=== PATIENT | female | born 1955 | race Two or more races ===

== ENCOUNTER 2018-04-17 06:19 | Inpatient (IN) | payer OTHER ==
[2018-04-02 16:12] VITALS: BMI 28.1
[2018-04-17] MEDS ORDERED: MIDAZOLAM HCL 2 MG/2 ML SINGLE DOSE VIAL ONE (07:31)
[2018-04-17] MEDS ORDERED: BUPIVACAINE LIPOSOME/PF (EXPAREL) 266 MG/20 ML VIAL ONE (08:27)
[2018-04-17] MEDS ORDERED: SODIUM CHLORIDE 0.9% P/F 10 ML VIAL IJ ONE (08:27)
[2018-04-17] MEDS ORDERED: BUPIVACAINE HCL/PF (5 MG/ML) 30 ML VIAL IJ ONE (08:27)
[2018-04-17] MEDS ORDERED: ONDANSETRON 4 MG/2 ML VIAL ONE (08:59)
[2018-04-17] MEDS ORDERED: ceFAZolin SODIUM 1 GM VIAL ONE ×2 (08:59→13:42)
[2018-04-17] MEDS ORDERED: PROPOFOL 20 ML ONE ×8 (08:59→14:02)
[2018-04-17] MEDS ORDERED: TRANEXAMIC ACID 1000 MG/10 ML VIAL ONE ×2 (08:59→13:35)
[2018-04-17] MEDS ORDERED: VANCOMYCIN 1,000 MG VIAL (RESTRICTED TO ID ONLY) ONE (08:59)
[2018-04-17] MEDS ORDERED: DEXAMETHASONE SOD PHOSPHATE 4 MG/1 ML VIAL ONE (08:59)
[2018-04-17] MEDS ORDERED: ePHEDrine SULFATE 50 MG/1 ML AMPULE ONE (11:21)
[2018-04-17] MEDS ORDERED: KETOROLAC TROMETHAMINE 30 MG/1 ML VIAL ONE (14:45)
--- NOTE | 2018-04-17 14:55 | PN ---
Progress Note (short form) - Note Progress Note: 63F s/p revision left TKA POD #0. 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 -DVT PPx: - Chemical: ASA 81mg PO BID x 6 weeks - Mechanical: REJI's, SCD's. -Incentive spirometry. -PT/OT/Rehab, OOB. -TTWB LLE. -PROM 0-90 deg L knee. -f/u drain output. -f/u post-op trial of void. -f/u AM labs. -Will order [place] brace for patient. -Care per medical hospitalist team. -Discharge planning: f/u Sunday04/26/2018 at [facility] [place] office; call for appointment; . -Will follow. Redd Bauman MD (Orthopaedic Surgery).
--- NOTE | 2018-04-17 14:57 | OP ---
Operative Note - Note: Operative Date: 04/17/18 Pre-Operative Diagnosis: L TKA pain Operation: Revision L TKA tibial component & polyethylene liner Findings: No infection Implants: Marlee RHK. Tibia #2, Stem (medium length), Poly 14mm Post-Operative Diagnosis: Same as Pre-op Surgeon: Redd Bauman Retort Fireman: Chano Bauman Anesthesiologist/MORTAR MIXER: Bettye Xiao Anesthesia: Spinal Specimens Removed: Tibial component. Polyethylene liner Estimated Blood Loss (mls): 0 Drains & Tubes with Location: 1 x deep HemoVac Fluid Volume Replaced (mls): 1,000 Operative Report Dictated: Yes
[2018-04-17] MEDS ORDERED: MAGNESIUM HYDROX 2400MG/30ML ORAL SUSPENSION 30 ML CUP PO PRN (14:58)
[2018-04-17] MEDS ORDERED: ONDANSETRON 4 MG/2 ML VIAL IVPUSH PRN ×2 (14:58)
[2018-04-17] MEDS ORDERED: oxyCODONE HCL 5 MG TABLET PO PRN (14:58)
[2018-04-17] MEDS ORDERED: MAG HYDROX/AL HYDROX/SIMETH 30 ML UNIT-DOSE CUP PO PRN (14:58)
[2018-04-17] MEDS ORDERED: LACTATED RINGERS SOLUTION 1,000 ML IV SCH ×2 (15:00)
[2018-04-17] MEDS ORDERED: ONDANSETRON 4 MG/2 ML VIAL IVPUSH ONE (15:13)
[2018-04-17] MEDS ORDERED: ACETAMINOPHEN 1000 MG/100 ML VIAL (NON FORMULARY) IVPB ONE ×3 (15:15→15:30)
[2018-04-17] MEDS: oxyCODONE HCL 5 MG TABLET PO PRN ×2 (18:01→22:04)
[2018-04-17] MEDS: CEFAZOLIN 2 GM/D5W 2 GM/50 ML ML IVPB SCH (20:03)
[2018-04-17] MEDS: ACETAMINOPHEN 325 MG TABLET (FP) PO SCH (21:03)
[2018-04-17] MEDS: SENNOSIDES/DOCUSATE COMBO (SENNA PLUS) TABLET (UD) PO SCH (22:02)
[2018-04-17] MEDS: ASPIRIN COATED 81 MG TABLET.EC PO SCH (22:03)
[2018-04-17] MEDS: oxyCODONE HCL 10 MG SUSTAINED ACTING TABLET PO SCH (22:03)
[2018-04-17] MEDS: MIRTAZAPINE 15 MG TABLET (FP) PO SCH (22:03)
[2018-04-18] MEDS: ACETAMINOPHEN 325 MG TABLET (FP) PO SCH ×4 (04:00→20:04)
[2018-04-18] MEDS: CEFAZOLIN 2 GM/D5W 2 GM/50 ML ML IVPB SCH (04:41)
[2018-04-18 08:35] LABS: HEMATOCRIT 29.6 % (32.4-45.2); MCH 29.7 pg (25.7-33.7); MCHC 33.9 g/dl (32.0-36.0); MEAN CELL VOLUME 87.5 fl (80-96); MEAN PLT VOLUME 8.4 fl (7.5-11.1); PLATELET COUNT 222 K/MM3 (134-434); RBC 3.38 M/mm3 (3.60-5.2); RDW 12.4 % (11.6-15.6); WHITE BLOOD COUNT 8.7 K/mm3 (4.0-10.8)
--- NOTE | 2018-04-18 08:55 | OP ---
DATE OF OPERATION: 04/17/2018 SURGEON: Redd Bauman MD DECISION UNIT RN: Chano Bauman MD PREOPERATIVE DIAGNOSIS: Possible infection and loosening of left total knee arthroplasty. POSTOPERATIVE DIAGNOSIS: Loosening of tibial component. OPERATION PERFORMED: 1. Explantation of previous left knee. 2. Revision of left knee replacement to a Marlee rotating hinge arthroplasty. 3. Lateral release performed and a complete synovectomy performed in order to perform a full debridement of the knee. Biopsies were sent to the lab for culture and sensitivity. 4. Removal of hardware. DESCRIPTION OF PROCEDURE: Through the old original incision, the subcutaneous tissue was opened to the fascia. The quadriceps tendon was split longitudinally and coursed around the medial aspect of the patella alongside the medial to the actual top part of the medial tibial tubercle. The previous hardware screws of the tibial tubercle were removed, thus adding a removal of hardware to this operation. Once the screws had been removed, a full tibial tubercle osteotomy was performed. Approximately 10 cm distal to the proximal end of the tibial tubercle using wide osteotomes, the entire bone bed was lifted. This gave very adequate exposure. Without doing this osteotomy it would have been impossible, unless we tore off the patellar ligament off the tibial tubercle, to gain access to the knee. Full debridement of the soft tissues was performed. The tibia was inspected. The tibia was loose, and thus utilizing the tibial tubercle osteotomy to get around the cement as well as using Gigli saws and small oscillating saws working right around the top plate of the tibia, the entire tibial base plate was removed with the original stem. Reaming was to size 12. Complete clearance of the fibrous tissue in the endosteal canal was performed. Multiple small drill holes were made in the actual tibial bone bed for better cement ingress. The femoral component was inspected and found to be completely stable. Culture sticks were sent to the lab for microbiology and culture and sensitivity, but multiple specimens were taken throughout the knee and sent to the lab for histopathology which revealed the presence of 1 or 2 polymorphonuclear granulocytes in a few of the high-power heaton, not all. This fitted with the noninfected appearance of the soft tissues and bone bed itself. Once the confirmation of no infection was achieved, revision implantation of the tibia was performed. This was rotating hinge knee arthroplasty to revise the femoral locking pin as well of the rotating hinge accordingly, thus a complete total revision knee arthroplasty had been performed. We extended the extension gap. Using intramedullary jig alignment 2 mm of the proximal end of the tibia was removed and a size 2 tibial tray inserted with a 12 x 100-mm stem. This was cemented in its anatomical position. This brought about an excellent reduction with a size 17-mm polyethylene liner. There was no instability even checking the stability with the pin out of the rotating hinge component. Once we were happy with this full extension and excellent full flexion range of motion, the pin was inserted, and this provided no change in the motion of this knee. The tibial tubercle was then reattached using 3 lag effect small fragment cancellous screws, solid press-fit fixation and compression of the tibial tubercle achieved. The knee was placed through a full range of movement and found to have exact the same findings as outlined above. The wounds were thoroughly lavaged throughout the procedure. A 1/8-inch Hemovac drain was utilized. Closure was as follows: Fascia 1 Vicryl, subcutaneous 1 and 2-0 Vicryl, skin closed with fawn for drainage. A light dressing applied. No complications. Operation was performed under general anesthesia. Antibiotics utilized were 2 g Kefzol and 1 g vancomycin, and 1 g Kefzol given at the end of procedure. MD MURIEL Becerra/[id number]
[2018-04-18 09:00] LABS: ANION GAP 8 (8-16); BLOOD UREA NITROGEN 11 mg/dl (7-18); CALCIUM 8.6 mg/dl (8.4-10.2); CHLORIDE 101 mmol/L (98-107); CO2 28 mmol/L (22-28); CREATININE 0.8 mg/dl (0.6-1.3); GLUCOSE,RANDOM 97 mg/dl (74-106); POTASSIUM 4.3 mmol/L (3.5-5.1); SODIUM 137 mmol/L (136-145)
[2018-04-18] MEDS: PANTOPRAZOLE 40 MG TABLET (FP) PO SCH (09:40)
--- NOTE | 2018-04-18 09:46 | CONSULT ---
Consultation: REQUESTING PROVIDER: Dr Bauman CONSULT REQUEST: We have been asked to medically evaluate this patient for medical management HISTORY OF PRESENT ILLNESS: Patient is a 63 y/o female with a pmh of djd and hld,patient is post operative day 1, s/p left knee TKR, (revision) REVIEW OF SYSTEMS: CONSTITUTIONAL: Absent: fever, chills, diaphoresis, generalized weakness, malaise, loss of appetite, weight change HEENT: Absent: rhinorrhea, nasal congestion, throat pain, throat swelling, difficulty swallowing, mouth swelling, ear pain, eye pain, visual changes CARDIOVASCULAR: Absent: chest pain, syncope, palpitations, irregular heart rate, lightheadedness , peripheral edema RESPIRATORY: Absent: cough, shortness of breath, dyspnea with exertion, orthopnea, wheezing, stridor, hemoptysis GASTROINTESTINAL: Absent: abdominal pain, abdominal distension, nausea, vomiting, diarrhea, constipation, melena, hematochezia GENITOURINARY: Absent: dysuria, frequency, urgency, hesitancy, hematuria, flank pain, genital pain MUSCULOSKELETAL: present: left knee pain Absent: myalgia, arthralgia, joint swelling, back pain, neck pain SKIN: Absent: rash, itching, pallor HEMATOLOGIC/IMMUNOLOGIC: Absent: easy bleeding, easy bruising, lymphadenopathy, frequent infections ENDOCRINE: Absent: unexplained weight gain, unexplained weight loss, heat intolerance, cold intolerance NEUROLOGIC: Absent: headache, focal weakness or paresthesias, dizziness, unsteady gait, seizure, mental status changes, bladder or bowel incontinence PSYCHIATRIC: Absent: anxiety, depression, suicidal or homicidal ideation, hallucinations. PHYSICAL EXAMINATION Vital Signs - 24 hr 04/17/18 04/17/18 04/17/18 14:54 15:00 15:05 Temperature 97.6 F Pulse Rate 64 60 61 Respiratory 16 16 16 Rate Blood Pressure 93/65 112/63 113/68 O2 Sat by Pulse 97 99 99 Oximetry (%) 04/17/18 04/17/18 04/17/18 15:10 15:25 15:40 Temperature Pulse Rate 68 68 63 Respiratory 16 16 16 Rate Blood Pressure 111/64 111/63 106/59 O2 Sat by Pulse 99 99 99 Oximetry (%) 04/17/18 04/17/18 04/17/18 15:55 16:10 16:25 Temperature 97.6 F Pulse Rate 60 63 60 Respiratory 16 16 16 Rate Blood Pressure 100/55 108/60 106/54 O2 Sat by Pulse 99 99 Oximetry (%) 04/17/18 04/17/18 04/17/18 16:57 18:58 20:25 Temperature 98.1 F 98.0 F Pulse Rate 64 69 Respiratory 18 20 Rate Blood Pressure 95/52 109/61 O2 Sat by Pulse 95 96 Oximetry (%) 04/17/18 04/17/18 04/18/18 21:00 22:00 00:21 Temperature 98.0 F Pulse Rate 64 Respiratory 20 19 Rate Blood Pressure 100/46 O2 Sat by Pulse 96 93 L Oximetry (%) 04/18/18 06:00 Temperature 98.4 F Pulse Rate 65 Respiratory 19 Rate Blood Pressure 100/66 O2 Sat by Pulse 95 Oximetry (%) GENERAL: Awake, alert, and fully oriented, in no acute distress. HEAD: Normal with no signs of trauma. EYES: Pupils equal, round and reactive to light, extraocular movements intact, sclera anicteric, conjunctiva clear. No lid lag. EARS, NOSE, THROAT: Ears normal, nares patent, oropharynx clear without exudates. Moist mucous membranes. NECK: Normal range of motion, supple without lymphadenopathy, JVD, or masses. LUNGS: Breath sounds equal, clear to auscultation bilaterally. No wheezes, and no crackles. No accessory muscle use. HEART: Regular rate and rhythm, normal S1 and S2 without murmur, rub or gallop. ABDOMEN: Soft, nontender, not distended, normoactive bowel sounds, no guarding, no rebound, no masses. No hepatomegaly or splenomegaly. MUSCULOSKELETAL: Normal range of motion at all joints. No bony deformities or tenderness. No CVA tenderness. UPPER EXTREMITIES: 2+ pulses, warm, well-perfused. No cyanosis. No clubbing. Cap refill <2 seconds. No peripheral edema. LOWER EXTREMITIES: 2+ pulses, warm, well-perfused. No calf tenderness. No peripheral edema, left knee dressing cdi,hemovac drain scant drainage noted, scd /floyd. NEUROLOGICAL: Cranial nerves II-XII intact. Normal speech. Normal gait. PSYCHIATRIC: Cooperative. Good eye contact. Appropriate mood and affect. SKIN: Warm, dry, normal turgor, no rashes or lesions noted. Laboratory Results - last 24 hr 04/18/18 04/18/18 07:30 07:30 WBC 8.7 RBC 3.38 L Hgb 10.0 L Hct 29.6 L MCV 87.5 MCH 29.7 MCHC 33.9 RDW 12.4 Plt Count 222 MPV 8.4 Sodium 137 Potassium 4.3 Chloride 101 Carbon Dioxide 28 Anion Gap 8 BUN 11 Creatinine 0.8 Creat Clearance w eGFR > 60 Random Glucose 97 Calcium 8.6 Active Medications Generic Name Dose Route Start Last Admin Trade Name Freq PRN Reason Stop Dose Admin Acetaminophen 650 mg 04/17/18 21:00 04/18/18 08:16 Tylenol - PO 04/20/18 20:59 650 mg Q6H OWEN Administration Al Hydroxide/Mg Hydroxide 30 ml 04/17/18 14:58 Mylanta Oral Suspension - PO Q4H PRN DYSPEPSIA Aspirin 81 mg 04/17/18 22:00 04/17/18 22:03 Ecotrin - PO 81 mg BID OWEN Administration Lactated Ringer's 1,000 mls @ 75 mls/hr 04/17/18 15:00 04/17/18 16:51 Lactated Ringers Solution IV Not Given ASDIR OWEN Magnesium Hydroxide 30 ml 04/17/18 14:58 Milk Of Magnesia - PO PRN PRN CONSTIPATION Mirtazapine 45 mg 04/17/18 22:00 04/17/18 22:03 Remeron - PO 45 mg HS OWEN Administration Ondansetron HCl 4 mg 04/17/18 14:58 Zofran Injection IVPUSH Q6H PRN NAUSEA Oxycodone HCl 5 mg 04/17/18 14:58 Roxicodone - PO Q3H PRN PAIN LEVEL 1-5 Oxycodone HCl 10 mg 04/17/18 14:58 04/17/18 22:04 Roxicodone - PO 10 mg Q3H PRN Administration PAIN LEVEL 6-10 Oxycodone HCl 10 mg 04/17/18 22:00 04/17/18 22:03 Oxycontin - PO 04/20/18 14:59 10 mg BID OWEN Administration Pantoprazole Sodium 40 mg 04/18/18 10:00 Protonix - PO DAILY OWEN Senna/Docusate Sodium 2 tablet 04/17/18 22:00 04/17/18 22:02 Pericolace - PO 2 tablet BID OWEN Administration ASSESSMENT/PLAN: 1) ms s/p left knee (revision) TKR, pod #1 - toe touch weight bearing as per ortho - incentive spirometeer - monitor h/h, repeat hgb this am 10.0 Dispo: We will continue to follow the patient. Thank you for this consultative opportunity. Visit type - Emergency Visit Emergency Visit: No - New Patient This patient is new to me today: Yes Date on this admission: 04/18/18 - Critical Care Critical Care patient: No
[2018-04-18] MEDS: SENNOSIDES/DOCUSATE COMBO (SENNA PLUS) TABLET (UD) PO SCH ×2 (10:00→21:59)
[2018-04-18] MEDS: oxyCODONE HCL 10 MG SUSTAINED ACTING TABLET PO SCH ×2 (10:19→22:01)
[2018-04-18] MEDS: ASPIRIN COATED 81 MG TABLET.EC PO SCH ×2 (10:19→22:03)
--- NOTE | 2018-04-18 12:01 | PN ---
Progress Note (short form) - Note Progress Note: Surgery POD #1 left total knee revision. Patient seen and examined at bedside, states her pain has improved since last night but the oxycodone made her itchy. She has been OOB with walker, voiding and tolerating a regular diet. She denies any CP, SOB, N/V/D, Fever or chills. Vital Signs Temp 98.4 F 04/18/18 06:00 Pulse 65 04/18/18 06:00 Resp 19 04/18/18 06:00 BP 100/66 04/18/18 06:00 Pulse Ox 95 04/18/18 06:00 Intake & Output 04/17/18 04/17/18 04/18/18 11:59 23:59 11:59 Intake Total 4800 Output Total 1000 125 Balance 3800 -125 Weight 185 lb Intake: IV 1800 Other 3000 Output: Drainage 125 hemovac 125 Urine 1000 Other: # Unmeasured Voids Void 1 Height 5 ft 8 in Body Mass Index (BMI) 28.1 CBC, BMP 04/18/18 07:30 04/18/18 07:30 PE: A&Ox3, NAD, unlabored resp on RA Left knee dressing C/D/I with drain functioning-SS d/c, ROM from 0-40 degrees. 5 /5 strength on dorsi/plantar flexion. B/L LE compartment soft and non-tender with +2 pedal pulses Problem List - Problems (1) Failure of total knee arthroplasty Assessment/Plan: POD #1 left total knee revision doing well. 1) OOB with walker- WBAT (B[place]so Brace) 2) DVT prophylaxis with ASA 81 BID x 6 weeks and SCDs and TEDs 3) ROM 0-90 degrees 4) Plan for d/c home once drain removed possibly tomorrow. Code(s): T84.018A - BROKEN INTERNAL JOINT PROSTHESIS, OTHER SITE, INIT ENCNTR; Z96.659 - PRESENCE OF UNSPECIFIED ARTIFICIAL KNEE JOINT
--- NOTE | 2018-04-18 13:21 | PN ---
Progress Note (short form) - Note Progress Note: 63F POD1 s/p revision of left TKR under spinal anesthetic with peripheral nerve blocks for post operative pain relief. Pt states that pain is well controlled, reports no anesthetic complications. Pruritis secondary to oxycodone improved. AVSS. Motor and sensory function intact in bilateral lower extremities. Continue current regimen.
[2018-04-18] MEDS: diphenhydrAMINE HCL 25 MG CAPSULE (FP) PO PRN (20:04)
[2018-04-18] MEDS: oxyCODONE HCL 5 MG TABLET PO PRN (20:05)
[2018-04-18] MEDS: MIRTAZAPINE 15 MG TABLET (FP) PO SCH (22:01)
[2018-04-19] MEDS: ACETAMINOPHEN 325 MG TABLET (FP) PO SCH ×2 (02:32→09:00)
[2018-04-19] MEDS: oxyCODONE HCL 5 MG TABLET PO PRN ×2 (05:57→10:59)
[2018-04-19] MEDS: diphenhydrAMINE HCL 25 MG CAPSULE (FP) PO PRN ×2 (05:58→10:58)
[2018-04-19] MEDS: oxyCODONE HCL 10 MG SUSTAINED ACTING TABLET PO SCH (10:58)
[2018-04-19] MEDS: SENNOSIDES/DOCUSATE COMBO (SENNA PLUS) TABLET (UD) PO SCH (10:58)
[2018-04-19] MEDS: ASPIRIN COATED 81 MG TABLET.EC PO SCH (10:58)
[2018-04-19] MEDS: PANTOPRAZOLE 40 MG TABLET (FP) PO SCH (10:59)
--- NOTE | 2018-04-19 12:15 | DS ---
Physical Exam: SUBJECTIVE: POD #2 left Revision TKA patient seen and examined at bedside with no complaints. Pain is controlled and she denies any CP, SOB, N/V Fever or chills. She has been ambulating with a walker and is tolerating her diet. OBJECTIVE: Vital Signs Period Temp Pulse Resp BP Sys/Murray Pulse Ox Last 24 Hr 98.2 F-99.5 F 63-72 18-18 97-108/52-54 96-97 PHYSICAL EXAM GENERAL: The patient is awake, alert, and fully oriented, in no acute distress. HEAD: Normal with no signs of trauma. EYES: sclera anicteric, conjunctiva clear. LUNGS: unlabored resp on RA, no accessory muscle use. ABDOMEN: Soft, nontender, nondistended, normoactive bowel sounds, no guarding, no rebound, no hepatosplenomegaly, no masses. EXTREMITIES:Left Knee dressing c/d/i with surrounding tissue intact and no evidence of tracking d/c or collection. Thigh soft, supple with mild ttp throughout, Drain removed with tip fully intact and pressure dressing applied. ROM from 0-60 degrees. B/L LE compartments soft, supple and non-tender with 2+ pulses, warm, well-perfused, 5/5 dorsi/plantar flexion NEUROLOGICAL: Cranial nerves II through XII grossly intact. Normal speech, gait not observed. PSYCH: Normal mood, normal affect. SKIN: Warm, dry, normal turgor, no rashes or lesions noted. CBC, BMP 07/12/18 07:30 07/12/18 07:30 HOSPITAL COURSE: Date of Admission:18 The patient was admitted to the Med-Surg Unit after left TKA revision. Now, s/ p left TKA revision. An xray was obtained in the OR and confirmed hardware placement in good position with no fractures or dislocations. The day of surgery, the patient ambulated the hallways with assistance. Narcotic and non-narcotic pain management control was achieved with an oral and IV approach. POD #2, the surgical drain was removed fully intact and without incident. Judith-operative IV ABX were administered. DVT prophylaxis was achieved with SCDs and early ambulation. The patient ambulated with Physical Therapy and rehab was recommended. Narcotic scripts and were checked with PRS MODEL MAKER PLASTER prior to escibe. The discharge instructions and an oral pain management plan were reviewed with the patient. All questions answered. Date of Discharge: 04/19/18 Minutes to complete discharge: 25 [facility]charge Summary [facility] Current Active Problems Failure of total knee arthroplasty (Acute) Condition: Stable - Instructions Diet, Activity, Other Instructions: Dr. Bauman Discharge Instructions for Knee Replacement Post Operative Instructions Physical activity Physical Therapist will come to your home for the first 5 days. You will be set up with outpatient PT at your first post-operative visit. Use assistive devices for ambulation at all times. Toe touch weight bearing with walker on your surgical side. Do not put pillow under knee. May put pillow under heel. Wear knee brace when out of bed ambulating. Wound care Leave your surgical dressing in place. Do not change the dressing until seen by your surgeon in the office. No baths or showers. Do not submerge your incision. Do not apply any ointments or lotions to your incision. Please call the office if your dressing is soiled/dirty or is falling off. Apply Graduated Compression Stockings (TEDS) to both lower extremities - remove daily for hygiene ONLY. Diet There are no dietary restrictions. Eat healthy, high-fiber foods. Drink 6 to 8 glasses of liquid each day. This will assist in keeping your bowels are regular. Pain management Any pain prescription medication ordered should be taken as prescribed for moderate to severe pain. Do not take additional Tylenol while taking Percocet. Take Aspirin 81 mg two times a day for a total of 6 weeks to prevent blood clots. Call Dr. Bauman for any of the following: Severe pain not relieved by medication Fever of 101 or higher Excessive bleeding or drainage on dressing Inability to urinate If you experience chest pain or shortness of breath, please seek emergency care immediately. Please call the office at to confirm your post-op appointment for the week following surgery. Disposition: HOME - Home Medications Comprehensive Discharge Medication List: Ambulatory Orders Atorvastatin Calcium [Lipitor] 10 mg PO DAILY 04/02/18 Mirtazapine [Remeron -] 45 mg PO DAILY 04/02/18 Problem List - Problems (1) Failure of total knee arthroplasty Assessment/Plan: POD #2 left revision TKA doing well 1) Continue ASA x 6 weeks 2) TTBA with brace and walker 3) pain control 4) d/c home today Code(s): T84.018A - BROKEN INTERNAL JOINT PROSTHESIS, OTHER SITE, INIT ENCNTR; Z96.659 - PRESENCE OF UNSPECIFIED ARTIFICIAL KNEE JOINT This patient is new to me today: Yes Date on this admission: 04/19/18 Emergency Visit: No Critical Care patient: No - Discharge Referral Referred to [facility] Med P.C.: No
[2018-04-19 14:48] VITALS: BP 103/58; PULSE 67; TEMP 98
--- NOTE | 2018-04-19 15:46 | PATH ---
Surgical Pathology Report Patient Name: DARIO VÁZQUEZ Med. Rec. #: [id number] /Age/Gender: 1955 (Age: 63) / F Account: [id number] Location: [facility] MED-SURG Taken: 04/17/2018 Received: 04/17/2018 Reported: 04/19/2018 Physicians: Redd Bauman M.D. Specimen(s) Received A: LEFT KNEE SYNOVIUM FEMUR (FS) B: LEFT KNEE SYNOVIUM (FS) C: LEFT KNEE CAPSULE (FS) D: LEFT KNEE CAPSULE/SYNOVIUM (FS) E: LEFT KNEE EXPLANTS Clinical History Mechanical loosening left knee Intraoperative Consult Diagnosis A. Left knee synovium, frozen section: Rare neutrophils seen (up to 1-2 in 10 appeals representative high-power bernal). B. Left knee synovium, frozen section: Rare neutrophils seen (up to 1-2 in 10 appeals representative high-power bernal) in appeals representative sections. C. Left knee capsule, frozen section: No definitive neutrophils identified in appeals representative sections. D. Left knee capsule/synovium, frozen section: Rare neutrophils seen (up to 1-2 in 10 appeals representative high-power bernal) in appeals representative sections. Devang Camarillo M.D., 04/17/18 Final Diagnosis A. SYNOVIUM FEMUR, LEFT KNEE, REVISION (FS): FIBROSYNOVIAL TISSUE SHOWING REACTIVE HYPERPLASIA, FOREIGN BODY GIANT CELL REACTION AND 1-2 NEUTROPHILS IN TEN HIGH-POWER BERNAL (HPF). B. SYNOVIUM, LEFT KNEE, REVISION (FS): FIBROSYNOVIAL TISSUE SHOWING REACTIVE HYPERPLASIA AND 1-2 NEUTROPHILS IN TEN HIGH-POWER BERNAL (HPF). (SEE NOTE) Note: Overall up to 1-2 neutrophils are noted in multiple (up to ten) high-power bernal, however few foci on permanent sections of frozen section tissue and in additional tissue show 3-4 neutrophils in rare single high-power bernal. C. CAPSULE, LEFT KNEE, REVISION (FS): FIBROSYNOVIAL TISSUE SHOWING REACTIVE HYPERPLASIA AND 1-2 NEUTROPHILS IN TEN HIGH-POWER BERNAL (HPF). (SEE NOTE) FIBROCOLLAGENOUS AND FIBROCARTILAGINOUS TISSUE. Note: Rare neutrophils are identified in reactive fibrosynovial tissue on permanent sections of frozen section tissue and in additional tissue. No definitive neutrophils were identified on original frozen section slides. D. CAPSULE/SYNOVIUM, LEFT KNEE, REVISION (FS): FIBROSYNOVIAL TISSUE SHOWING REACTIVE HYPERPLASIA AND 1-2 NEUTROPHILS IN TEN HIGH-POWER BERNAL (HPF). FIBROCOLLAGENOUS AND FIBROCARTILAGINOUS TISSUE. E. EXPLANTS, LEFT KNEE: HARDWARE, DESCRIBED (GROSS EXAMINATION ONLY). Electronically Signed Karly Camarillo M.D. Gross Description A. Received fresh labeled "left knee synovium femur," is a 2.4 x 2.0 x 0.3 cm portion of pink and red hdez soft tissue. The specimen is entirely submitted for frozen section. The frozen section residue is entirely submitted in one cassette (FSA1). B. Received fresh labeled "left knee synovium," are 3 pieces of pink and red hdez tissue ranging from 1.5-4.5 cm in greatest dimension. A frozen section is performed on appeals representative tissue. Sales Teacher sections are submitted in 3 cassettes with the frozen section residue and cassette FSB1. C. Received fresh labeled "left knee capsule," are 2 pieces of white fibrocartilaginous tissue measuring 4.8 x 1.8 x 0.5 and 5.7 x 1.8 x 0.5 cm. A frozen section is performed on appeals representative tissue. Sales Teacher sections are submitted in 3 cassettes with the frozen section residue in cassette FSC1. D. Received fresh labeled "left knee capsule/synovium," is a piece of hdez pink fibrocartilaginous tissue measuring 6.3 x 1.8 x 0.4 cm. A frozen section is performed on appeals representative tissue. Sales Teacher sections are submitted in 4 cassettes with the frozen section residue in cassette FSD1. E. Received fresh labeled "left knee explant," are 3 thomas metallic and white plastic portions of hardware, consistent with a knee explant. The portions of hardware range from 5.7-18.0 cm in greatest dimension. Also received within the same container are 3 g metallic screws ranging from 3.0-5.0 cm in length. No soft tissue is present. No sections are submitted, gross only. 04/18/201804/18/2018
[2018-04-22 08:23] LABS: HEMATOCRIT 31.7 % (32.4-45.2); MCH 29.5 pg (25.7-33.7); MCHC 31.4 g/dl (32.0-36.0); MEAN CELL VOLUME 93.9 fl (80-96); MEAN PLT VOLUME 10.5 fl (7.5-11.1); PLATELET COUNT 207 K/MM3 (134-434); RBC 3.38 M/mm3 (3.60-5.2); RDW 14.2 % (11.6-15.6); WHITE BLOOD COUNT 8.7 K/mm3 (4.0-10.8)
== END 2018-04-19 16:05 | disposition home health service (06) | DRG 468 ==
LOC: FM/S 06:19
PROVIDERS: ADMIT Orthopaedic Surgery Orthopaedic Surgery of the Spine; ATTEND Orthopaedic Surgery Orthopaedic Surgery of the Spine
PROC: 0SRD0J9 Replacement of Left Knee Joint with Synthetic Substitute, Cemented, Open Approach (ICD-10-PCS; 2018-04-17)
PROC: 0SPD0JZ Removal of Synthetic Substitute from Left Knee Joint, Open Approach (ICD-10-PCS; principal; 2018-04-17 09:00)
DX: T84.033A Mechanical loosening of internal left knee prosthetic joint, initial encounter (principal); Y83.8 Other surgical procedures as the cause of abnormal reaction of the patient, or of later complication, without mention of misadventure at the time of the procedure; Y92.89 Other specified places as the place of occurrence of the external cause; E78.5 Hyperlipidemia, unspecified
CPT/HCPCS: 36415; 73560-TC-LT-FY; 80048; 85027; 88300-TC; 88307-TC; 88331-TC; 97116-GP; 97163-GP; J0131